=== PATIENT | female | born 1950 | race Caucasian/White ===

== ENCOUNTER 2018-01-30 18:21 | Observation (INO) | payer MEDICARE, OTHER ==
[~2018-01-30] VITALS: Ht 160 cm; Wt 70.6 kg
--- NOTE | ~2018-01-30 | OP ---
PATIENT NAME: ALEXANDER SPENCER MEDICAL RECORD: [id number] :50 [facility] ADMISSION DATE:01/30/18 SURGEON: BIB GOMEZ MD DATE OF OPERATION: 01/31/2018 PROCEDURE: Left heart catheterization, selective coronary angiography, right radial approach. CATHETER: Radial sheath, [place] catheter. The procedure was well tolerated. The patient was returned to chavira and sheath removed. TR band was placed. FINDINGS: Left ventriculography in 30-degree BIANCHI view: Normal wall motion and normal systolic function. CORONARY ANATOMY: LEFT MAIN: Left main is free of disease. LAD: Free of disease in the diagonal system. CIRCUMFLEX: Free of disease in the marginal system. RIGHT CORONARY ARTERY: Dominant artery, gives rise to PDA, free of disease. IMPRESSION: Normal systolic function, normal coronary anatomy. 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
--- NOTE | ~2018-01-30 | HEMODYNAMI ---
PATIENT:ALEXANDER SPENCER MEDICAL RECORD: [id number] : 50 [facility]ATION[facility].[address] [id number] ADMISSION DATE: 01/30/18 Generatedon:01/31/201812:55 Patient name: ALEXANDER SPENCER Patient #: [id number] SSN: : Date of study: 01/31/2018 Page: Of Hemodynamic Procedure Report Patient Data Patient Demographics Procedure consent was obtained First Name: ALEXANDER Gender: Female Last Name: TJ : 1950 Patient #: [id number] Age: 67 year(s) Race: Unknown Additional ID: [id number] Contact details [address]: [address] [place] [address] State: [place] City: [place] Zip code: [address] Admission Admission Data Admission Date: 01/30/2018 Admission Time: 20:06 Room #: D.2125 Height (in.): 63 BSA: 1.74 (m2) Height (cm.): 160.02 BMI: 27.73 (kg/m2) Weight (lbs.): 156.53 Weight (kg.): 71 Lab Results Lab Result Date: 01/31/2018 Lab Result Time: 0:00 Biochemistry Name Units Result Min Max BUN mg/dl 16 --(---*)-- 7 18 Creatinine mg/dl 1 --(--*-)-- 0.6 1.3 CBC Name Units Result Min Max Hemoglobin g/dl 10.8 *-(----)-- 13.5 17.5 Platelets 10^3/l 189 --(*---)-- 130 400 Procedure Procedure Types Cath Procedure Diagnostic Procedure [facility] w/Coronaries Procedure Description Procedure Date Procedure Date: 01/31/2018 Procedure Start Time: 12:44 Procedure End Time: 12:52 Procedure Staff Name Function Michael Romero MD Performing Physician Erika Oswald RT Scrub Luis A Rodarte RN Nurse Rashi Baca RT Monitor Procedure Data Cath Procedure Fluoroscopy Diagnostic fluoroscopy Total fluoroscopy Time: 1 time: 1 min min Diagnostic fluoroscopy Total fluoroscopy dose: 241 dose: 241 mGy mGy Contrast Material Contrast Material Type Amount (ml) Isovue 300 42 Entry Location Entry Primary Successful Side Size Upsize Upsize Entry Closure Maldonado ccessful Closure Location (Fr) 1 (Fr) 2 (Fr) Remarks Device Remarks Radial Right 6 Fr Mechanical artery Short Compression Estimated blood loss: 10 ml Diagnostic catheters Device Type Used For End Catheter Placement DIAGNOSTIC [place] 110cm 5 Procedure Fr catheter ([id number]) Procedure Complications No complications Procedure Medications Medication Administration Route Dosage Oxygen etCO2 Nasal cannula 2 l/min Heparin Flush Bag added to field 2 bags (1000units/500ml NS) 0.9% NaCl I.V. ml/hr Radial Cocktail added to field 1 syringe (Verapomil 2mg/Nitro 400mcg/Heparin 1500units) Fentanyl I.V. 50 mcg Versed I.V. 1 mg Fentanyl I.V. 50 mcg Versed I.V. 1 mg Radial Cocktail I.A. 1 syringe (Verapomil 2mg/Nitro 400mcg/Heparin 1500units) Hemodynamics Rest BSA: 1.74 (m2) HGB: 10.8 (g/dl) O2 Consumption: Estimated: 169.59 (ml/min) O2 Co nsumption indexed: Estimated:97.47 (ml/min/m) Heart Rate: 82 (bpm) Pressure Samples Time Site Value (mmHg) Purpose Heart Use Rate(bpm) 12:46 LV 117/11,9 Snapshot 76 12:47 LV 107/27,9 Snapshot 96 Gradients Valve Time Site Site Mean SEP/DFP Peak To Heart Use 1 2 (mmHg) (sec/min) Peak Rate (mmHg) (bpm) Aortic 12:47 LV AO 83 Snapshots Pre Cath Intra NCS Post Cath Vital Signs Time Heart Resp SPO2 etCO2 NIBP (mmHg) Rhythm Pain Sedation Rate (ipm) (%) (mmHg) Status Level (bpm) 12:18:36 81 17 99 0 146/68(114) NSR 0 (11) 10(A) , No pain 12:23:25 79 17 99 0 137/67(114) NSR 0 (11) 10(A) , No pain 12:28:10 80 16 99 0 144/65(100) NSR 0 (11) 10(A) , No pain 12:32:57 80 16 100 30 140/63(99) NSR 0 (11) 10(A) , No pain 12:37:41 78 16 100 29.2 133/63(95) NSR 0 (11) 10(A) , No pain 12:42:22 68 17 100 25.5 114/52(87) NSR 0 (11) 9(A) , No pain 12:46:55 47 16 98 12.7 106/68(79) NSR 0 (11) 9(A) , No pain 12:51:13 78 19 99 33 107/53(73) NSR 0 (11) 9(A) , No pain Medications Time Medication Route Dose Verified Delivered Reason Notes Effectiveness by by 12:19:44 Oxygen etCO2 2 l/min Michael Gunn Per Nasal [facility] Brock Rodarte RN physician cannula 12:19:54 Heparin Flush added 2 bags Michael Gunn used for Bag to [facility] Borck Rodarte RN procedure (1000units/500ml field LICONA NS) 12:20:00 0.9% NaCl I.V. ml/hr Michael Gunn Per [facility] Brock Rodarte RN physician 12:31:15 Radial Cocktail added 1 Michael Gunn used for (Verapomil to syringe [facility] Brock Rodarte RN procedure 2mg/Nitro field LICONA 400mcg/Heparin 1500units) 12:37:27 Fentanyl I.V. 50 mcg Michael Gunn for sedation [facility] Brock Rodarte RN, MD 12:37:33 Versed I.V. 1 mg Michael Gunn for sedation [facility] Brock Rodarte RN, MD 12:43:55 Fentanyl I.V. 50 mcg Michael Gunn for sedation [facility] Brock Rodarte RN, MD 12:44:00 Versed I.V. 1 mg Michael Gunn for sedation [facility] Brock Rodarte RN, MD 12:46:59 Radial Cocktail I.A. 1 Michale Gunn for (Verapomil syringe [facility] Brock Rodarte RN vasodilation 2mg/Jatin LICONA 400mcg/Heparin 1500units) Procedure Log Time Note 11:50:38 Erika Counts RT(R) sent for patient. Start room use. 11:53:07 Time tracking: Regular hours (M-F 7:00 - 5:00) 11:53:10 Plan of Care:Hemodynamics will remain stable., Cardiac rhythm will remain stable., Comfort level will be maintained., Respiratory function will remain adequate., Patient/ family verbilizes understanding of procedure., Procedure tolerated without complication., Recovers from procedure without complications.. 12:15:06 Patient received from Med II to CCL 1 Alert and oriented. Tansferred to table in Supine position. 12:15:08 Warm blankets applied, and sohail hugger turned on for patient comfort. 12:15:08 Correct patient and procedure confirmed by team. 12:15:10 Signed procedure consent form obtained from patient. 12:15:12 ECG and BP/O2 sat monitors applied to patient. 12:17:40 Vital chart was started 12:17:42 Baseline sample Acquired. 12:19:13 Baseline sample Acquired. 12:19:25 Full Disclosure recording started 12:19:29 H&P Date Dictated: 01/31/2018 Within 30 days and on chart., H&P Addendum completed by physician on day of procedure. (MUST COMPLETE FOR ALL OUTPATIENTS). 12:19:31 Pre-procedure instructions explained to patient. 12:19:32 Pre-op teaching completed and patient verbalized understanding. 12:19:34 Family in patients room. 12:19:36 Patient NPO since Midnight. 12:19:38 Is the patient allergic to Iodine/contrast media? No. 12:19:40 Was the patient premedicated? No 12:19:44 Oxygen 2 l/min etCO2 Nasal cannula was administered by Luis A Rodarte RN; Per physician; 12:19:45 Is patient on blood thinner?Yes 12:19:47 Patient diabetic? Yes. 12:19:48 If diabetic: On Metformin? Yes 12:19:54 Heparin Flush Bag (1000units/500ml NS) 2 bags added to field was administered by Luis A Rodarte RN; used for procedure; 12:19:56 If on Metformin: Last Dose? 01/30/2018 12:20:00 0.9% NaCl ml/hr I.V. was administered by Luis A Rodarte RN; Per physician; 12:20:00 Previous problem with sedation/anesthesia? No ? 12:20:04 Snore? Yes 12:20:06 Sleep apnea? No 12:20:07 Deviated septum? No 12:20:08 Opens mouth fully? Yes 12:20:08 Sticks out tongue? Yes 12:20:13 Airway obstruction? No ? 12:20:21 Dentures? Yes in tight 12:20:25 Pre procedure: right dorsailis pedis pulse 2+ Normal; easily identifiable; not easily obliterated 12:20:27 Pre procedure: left dorsailis pedis pulse 2+ Normal; easily identifiable; not easily obliterated 12:20:30 Patient pain scale 0/10 ?. 12:20:38 IV patent on arrival in left forearm with 0.9% NaCl at [facility]. 12:20:41 Lab results completed and on chart. 12:20:46 Right Radial & Right Groin area was prepped with chlora-prep and draped in sterile fashion 12:20:47 Alarms reviewed by R. N. 12:20:48 Sharps counted by scrub and verified by R.N. 12:25:40 Baseline sample Acquired. 12::46 Rhythm: sinus rhythm 12:25:58 Modified Dontrell's test Ulnar < 7 seconds 12:26:11 Use device set Radial Dx or PCI 12:26:13 Tegaderm 4 x 4 (1626W) opened to sterile field. 12:26:15 ACIST Hand Control (88755) opened to sterile field. 12:26:15 ACIST Manifold (09828) opened to sterile field. 12:26:17 ACIST Syringe (56314) opened to sterile field. 12:26:17 Medline Cath Pack ([id number]) opened to sterile field. 12:26:18 Bag Decanter (2002S) opened to sterile field. 12:26:18 DIAGNOSTIC WIRE .035 260cm J wire (685184) opened to sterile field. 12:26:21 MBrace Wrist Support ([id number]) opened to sterile field. 12:26:24 SHEATH 6Fr Prelude Radial ([id number]) opened to sterile field. 12:29:25 ACC The patient was administered the following blood thiners within the last 24 hours: ACCPlavix 12:31:15 Radial Cocktail (Verapomil 2mg/Nitro 400mcg/Heparin 1500units) 1 syringe added to field was administered by Luis A Rodarte RN; used for procedure; 12::54 Lab Result : BUN 16 mg/dl :54 Lab Result : Creatinine 1 mg/dl ::54 Lab Result : Hemoglobin 10.8 g/dl 12::54 Lab Result : Platelets 189 10^3/l 12:32:58 Physician paged 12:37:14 --------ALL STOP TIME OUT------ 12:37:14 Final Timeout: patient, procedure, and site verified with staff and physician. All members of the team are in agreement. 12:37:17 Right Radial & Right Groin site verified by team. 12:37:20 Physical assessment completed. ASA score P 2 - A patient with mild systemic disease as per Michael Romero MD. 12:37:24 Sedation plan: IV Moderate Sedation Medication:Versed, Fentanyl 12:37:27 Fentanyl 50 mcg I.V. was administered by Luis A Rodarte RN; for sedation; 12:37:33 Versed 1 mg I.V. was administered by Luis A Rodarte RN; for sedation; 12:38:47 Patient Height : 63 inches 12:38:51 Patient Weight : 156.53 lbs 12:43:55 Fentanyl 50 mcg I.V. was administered by Luis A Rodarte RN; for sedation; 12:44:00 Versed 1 mg I.V. was administered by Luis A Rodarte RN; for sedation; 12:44:16 Procedure started. 12:44:41 Local anesthetic to right radial artery with Lidocaine 2% by Michael Romero MD.INITIAL ACCESS ONLY 12:45:02 A 6 Fr Short sheath was inserted into the Right Radial artery 12:45:41 A DIAGNOSTIC [place] 110cm 5 Fr catheter (237249) was advanced over the wire and used for Procedure. 12:46:59 Radial Cocktail (Verapomil 2mg/Nitro 400mcg/Heparin 1500units) 1 syringe I.A. was administered by Luis A Rodarte RN; for vasodilation; 12:47:27 LV angiography performed. 12:47:29 LV gram done using BIANCHI 12:47:35 EF : 55 % 12:47:40 LV hemodynamics recorded. 12:47:43 Injector settings: Ml/sec: 10, Volume: 20, 12:47:57 RCA angiography performed. 12:48:37 LCA angiography performed. 12:48:41 Catheter removed. 12:49:01 TR BAND Standard ([id number]) opened to sterile field. 12:50:17 Sheath removed intact; hemostasis achieved with Mechanical Compression to the Right Radial artery. 12:50:19 Procedure ended.(Physican Out) 12:50:39 Fluoroscopy time 01.00 minutes. 12:50:43 Fluoroscopy dose: 241 mGy 12:50:43 Flurop Dose total: 241 12:51:04 Contrast amount:Isovue 300 42ml. 12:51:05 Sharps counted by scrub and verified by R.N. 12:51:08 Insertion/operative site no bleeding no hematoma. 12:51:10 TR band inflated with 12cc of air. 12:51:19 Post Procedure Pulses reassessed and unchanged 12:51:21 Post-procedure physical assessment completed. ASA score P 2 - A patient with mild systemic disease as per Michael Romero MD. 12:51:24 Post procedure rhythm: unchanged. 12:51:57 Estimated blood loss: 10 ml 12:52:01 Post procedure instruction explained to patient.Patient verbalizes understanding. 12:52:02 Patient needs reinforcement of post procedure teaching. 12:52:21 Procedure and supply charges have been captured, reviewed, submitted and are correct. 12:52:24 Procedure Complication : No complications 12:52:29 Vital chart was stopped 12:52:30 See physician's report for complete and final results. 12:52:38 Report given to Pre/Post Procedure Room. 12:52:47 Patient transfered to Pre/Post Procedure Room with Stretcher. 12:52:50 Procedure ended. 12:52:50 Full Disclosure recording stopped 12:52:59 End room use (Document Last) Device Usage Item Name Manufacture Quantity Catalog Number Hospital Part Current M inimal Lot# / Charge Number Stock Stock Serial# Code Tegaderm 4 x 4 3M 1 [id number] [id number] 255186 5 (1626W) ACIST Hand Acist 1 74133 523893 533478 644676 5 Control (59926) [employer] ACIST Manifold Acist 1 84413 866261 180497 172949 5 (30455) [employer] ACIST Syringe Acist 1 70467 475821 562584 631486 2 0 (70380) [employer] Medline Cath Cardinal 1 [id number] 84157 463452 5 [email or web address] [facility] ([id number]) Bag Decanter Microtek 1 2001S 641441 79664 876232 5 (2002S) Medical Inc. DIAGNOSTIC WIRE [facility] [place] 1 623376 481900 532204 636988 3 0 .035 260cm J wire (156706) MBrace Wrist Advanced 1 140-0250-00 448840 89905 340146 5 Support Vascular ([id number]) Dynamics SHEATH 6Fr Merit 1 [id number] 522219 600734 004851 5 Prelude Radial Medical ([id number]) DIAGNOSTIC Terumo 1 40-5637 723093 621069 187921 5 [place] 110cm 5 Fr catheter (525948) TR BAND Terumo 1 [id number] 900037 487561 350014 4 0 Standard (VSH32FIN) Signature Audit [place] Stage Time Signature Unsigned Intra-Procedure 01/31/2018 Rashi Baca 12:55:06 PM RT(R) Signatures Monitor : Rashi Baca RT Signature : Date : Time : [place] [id number] [place] [address]
[2018-01-30 18:53] LABS: BASOPHILS 0.5 % (0-2); EOSINOPHILS 1.7 % (0-7); HEMATOCRIT 35.3 % (36.0-48.0); HEMOGLOBIN 11.7 g/dL (12-16); IMMATURE GRANULOCYTES 0.2 % (0-5); LYMPHOCYTES 37.5 % (15-50); MCH 28.7 pg (26.0-34.0); MCHC 33.1 g/dL (31.0-37.0); MCV 86.5 fL (80.0-100.0); MEAN PLATELET VOLUME 9.6 fL (7.4-10.4); MONOCYTES 7.1 % (2-11); PLATELET COUNT 206 10x3/uL (130-400); RBC 4.08 10x6/uL (4.00-5.40); WBC 6.5 10x3/uL (4.8-10.8)
[2018-01-30 19:05] LABS: ALBUMIN 3.8 g/dL (3.4-5.0); ALKALINE PHOSPHATASE 72 U/L (46-116); ALT (SGPT) 35 U/L (10-68); BILIRUBIN - TOTAL 0.28 mg/dL (0.2-1.3); CALC OSMOLALITY 276 mosm/kg (275-300); CALCIUM 9.1 mg/dL (8.5-10.1); CHLORIDE - SERUM 104 mmol/L (98-107); CREATININE - SERUM 1.4 mg/dL (0.6-1.3); GLUCOSE 98 mg/dL (74-106); POTASSIUM - SERUM 4.6 mmol/L (3.5-5.1); PROTEIN - SERUM 7.3 g/dL (6.4-8.2); SODIUM 138 mmol/L (136-145); UREA NITROGEN 16 mg/dL (7-18); eGFR NON AFRICAN AMERICAN 40 mL/min (90-120)
[2018-01-30 19:16] LABS: CKMB 0.4 U/L (0.0-3.6); CREATINE KINASE 68 UL (21-215)
[2018-01-30 19:18] LABS: TROPONIN-I < 0.017 ng/mL (0.000-0.060)
[2018-01-30] MEDS ORDERED: GLUCOPHAGE500 MG PO (21:32)
[2018-01-30] MEDS ORDERED: CARAFATE1 G PO (21:32)
[2018-01-30] MEDS ORDERED: COREG6.25 MG PO (21:33)
[2018-01-30] MEDS ORDERED: LIPITOR40 MG PO (21:33)
[2018-01-30] MEDS ORDERED: PROTONIX40 MG PO (21:33)
[2018-01-30] MEDS ORDERED: BAYER CHEWABLE81 MG PO (21:34)
[2018-01-30 23:07] LABS: CKMB 0.3 U/L (0.0-3.6); CREATINE KINASE 64 UL (21-215)
[2018-01-30 23:10] LABS: TROPONIN-I < 0.017 ng/mL (0.000-0.060)
[2018-01-30 23:47] VITALS: BP 119/51; BMI 28.0
[2018-01-31 00:11] VITALS: BP 119/51
[2018-01-31 05:39] VITALS: BP 108/57
[2018-01-31 06:08] LABS: CREATINE KINASE 54 UL (21-215)
[2018-01-31 06:09] LABS: TROPONIN-I < 0.017 ng/mL (0.000-0.060)
[2018-01-31 08:19] VITALS: Ht 160 cm; Wt 70.6 kg
[2018-01-31 08:29] VITALS: BP 119/50
[2018-01-31 08:30] LABS: BASOPHILS 0.7 % (0-2); EOSINOPHILS 2.2 % (0-7); HEMOGLOBIN 10.8 g/dL (12-16); IMMATURE GRANULOCYTES 0.2 % (0-5); LYMPHOCYTES 43.8 % (15-50); MCH 28.6 pg (26.0-34.0); MCHC 32.7 g/dL (31.0-37.0); MCV 87.3 fL (80.0-100.0); MEAN PLATELET VOLUME 10.3 fL (7.4-10.4); MONOCYTES 10.9 % (2-11); NEUTROPHILS 42.2 % (40-80); PLATELET COUNT 189 10x3/uL (130-400); RBC 3.78 10x6/uL (4.00-5.40); RDW 13.2 % (11.5-14.5); WBC 5.4 10x3/uL (4.8-10.8)
[2018-01-31 08:42] LABS: ANION GAP 16.3 mmol/L (8-16); CALCIUM 9.3 mg/dL (8.5-10.1); CARBON DIOXIDE 22.2 mmol/L (21.0-32.0); POTASSIUM - SERUM 4.5 mmol/L (3.5-5.1)
[2018-01-31 11:45] VITALS: BP 131/54
[2018-01-31 12:35] LABS: CKMB 0.5 U/L (0.0-3.6); CREATINE KINASE 57 UL (21-215); TROPONIN-I < 0.017 ng/mL (0.000-0.060)
== END 2018-01-31 15:09 | disposition home or self-care (01) ==
LOC: D.ER 18:21 → D.M2 20:06 → D.EDHOLD 20:06 → OBSVTIME 20:06 → D.M2 20:52 → D.CLR 01-31 13:01
PROVIDERS: Emergency Medicine; Family Medicine; Internal Medicine Interventional Cardiology
DX: R07.9 Chest pain, unspecified (principal); Z82.49 Family history of ischemic heart disease and other diseases of the circulatory system; I10 Essential (primary) hypertension; E11.9 Type 2 diabetes mellitus without complications; E78.5 Hyperlipidemia, unspecified; K21.9 Gastro-esophageal reflux disease without esophagitis